=== PATIENT | male | born 1995 | race Caucasian/White ===

== ENCOUNTER 2020-04-01 15:21 | Emergency (ER) | payer BC, SELFPAY ==
[2020-04-01] VITALS (11 sets, daily range): BP systolic 106–141; BP diastolic 62–79; PULSE 57–74; RESP 14–18; TEMP 37; O2SAT 96–98; BMI 23.5
--- NOTE | 2020-04-01 15:39 | ECG_ITS ---
Measurements Intervals [place] Rate: 64 P: 11 TN: 139 QRS: 80 QRSD: 93 T: 72 QT: 380 QTc: 394 SINUS RHYTHM EARLY REPOLARIZATION [ST ELEVATION WITH NORMALLY INFLECTED T WAVE] Compared to ECG 07/14/2018 23:03:54 Early repolarization now present Electronically Signed On 04-01-2020 19:29:16 CDT by Benita Leigh M.D. [email or web address]
--- NOTE | 2020-04-01 15:39 | CT_ITS ---
WS: [id number] CT HEAD NONCONTRAST HISTORY: AMS/LOC TECHNIQUE: Contiguous axial imaging performed through the brain in 2.5 mm imaging. Bone and soft tiss ue windows. Sagittal and coronal reformats reviewed. All CT scans at [facility] use at ast one of these dose optimization techniques: automated exposure control; mA and/or kV adjustment pe r patient size (includes targeted exams where dose is matched to clinical indication); or iterative r econstruction. DLP: 751.84 mGy.cm COMPARISON: None available. No acute intracranial hemorrhage, midline shift or mass effect. No atrophy or prior infarcts or herniation. Ventricles: Normal size with no hydrocephalus. Paranasal sinuses: As visualized are clear. Mastoid air cells: Well pneumatized. Calvarium and scalp: Skull is intact with no soft tissue edema or swelling. CT/CT head wo con* [id number] IMPRESSION: Negative head CT.
--- NOTE | 2020-04-01 15:40 | XR_ITS ---
WS: [id number] PORTABLE CHEST HISTORY: dyspnea/cough COMPARISON: 07/14/2018 Lungs are clear and well expanded. No pleural effusion or pneumothorax. Cardiac size: Normal. Mediastinum/Aorta: Normal mediastinum. No osseous abnormality seen. XR/XR chest 1V portable [id number] IMPRESSION: Unremarkable portable chest.
[2020-04-01 15:52] LABS: Basophils # 0.1 10^3/uL (0.0-0.1); Basophils % 0.7 %; Eosinophils # 0.1 10^3/uL (0.0-0.8); Eosinophils % 0.7 %; Hematocrit 45.4 % (42.0-52.0); Hemoglobin 15.3 g/dL (11.7-16.6); Lymphocytes # 1.7 10^3/uL (0.8-4.8); Lymphocytes % 24.5 %; Mean Corpuscular HGB Conc 33.7 g/dL (30.0-36.0); Mean Corpuscular Hemoglobin 29.6 pg (28.0-34.0); Mean Corpuscular Volume 87.8 fL (80-94); Mean Platelet Volume 10.5 fL (7.4-10.4); Monocytes # 0.5 10^3/uL (0.2-0.9); Monocytes % 7.8 %; Neutrophils # 4.6 10^3/uL (1.8-7.7); Nucleated Red Blood Cells % 0 %; Platelet Count 204 10^3/cmm (130-400); Red Blood Count 5.17 10^6/uL (4.1-5.3); White Blood Count 6.9 10^3/uL (4.0-10.0)
[2020-04-01 15:58] LABS: Ketone (Acetest) Serum Negative (Negative)
--- NOTE | 2020-04-01 15:58 | XRR_ITS ---
PROCEDURE INFORMATION: Exam: XR Cervical Spine, 2 or 3 Views Exam date and time: 04/01/2020 4:26 PM Age: 24 years old Clinical indication: Neck pain; Patient HX: Found passed out in bathroom floor TECHNIQUE: Imaging protocol: XR of the cervical spine, 2 or 3 views. COMPARISON: No relevant prior studies available. FINDINGS: Vertebrae: Normal. No acute fracture. There is reversal of cervical lordosis which may reflect positional factors Soft tissues: Unremarkable. XR/XR cervical spine 3V* [id number] IMPRESSION: No acute bony abnormality.
[2020-04-01 16:33] LABS: Lactate (Lactic Acid level) 1.2 mmol/L (0.5-2.2)
--- NOTE | 2020-04-01 16:41 | ED_ITS ---
HPI - Altered Mental Status General: Chief Complaint: Altered Mental Status Stated Complaint: AMS Time Seen by Provider: 04/01/20 15:26 History of Present Illness: HPI narrative: 24 yo male had a syncopal episode he had been taking a shower got lightheaded and dizzy and passed out comes into now complaining of little bit of headache and back pain he vomited times once. He had some shortness of breath a little chest heaviness as well. He denies loss of bowel or bladder control did not bite his tongue this was an unwitnessed fall. He is not had any recent illnesses. Denies any other symptoms no GI or symptoms not been in contact with anyone and COVID no fevers recently denies any hematemesis coffee-ground emesis. MD complaint: other (Syncopal episode) Onset (ago): minute(s) Timing confirmed by: other (Unwitnessed) Severity: moderate Associated symptoms: Reports no associated symptoms Review of Systems Const: Denies: fever(s), chills, body aches, change in appetite, fatigue or malaise ENMT: Denies: throat pain, ear or mastoid pain, nasal discharge or nasal congestion Card: Denies: chest pain, edema, dyspnea on exertion or orthopnea Resp: Denies: dyspnea, productive cough or non-productive cough GI: Denies: abdominal pain, nausea, vomiting, hematemesis, coffee ground emesis, diarrhea, constipation, bloating, hematochezia or melena : Denies: flank pain, dysuria, urinary frequency or urinary urgency Skin/Breast: Denies: rash or pruritus PFSH ED PFSH: Social History Smoking and tobacco status: former smoker Physical Exam Const: COMMON NORMALS: no acute distress GENERAL APPEARANCE: cooperative and comfortable ORIENTATION/CONSCIOUSNESS: Yes awake, Yes oriented to person, Yes oriented to place and Yes oriented to time HENMT: COMMON NORMALS: normocephalic, atraumatic, hearing grossly normal bilaterally, external ears normal, EAC's normal, TM's normal bilaterally, Normal nasal mucous membranes and turbinates present, moist oral mucous membranes and oropharynx normal HEAD & SCALP: normocephalic and atraumatic NOSE: Normal nasal mucous membranes and turbinates present EXTERNAL EAR: Yes external ears normal EXTERNAL AUDITORY CANAL: EAC's normal TYMPANIC MEMBRANE: TM's nor mal bilaterally Eye: COMMON NORMALS: Equal, round and reactive pupils present, EOMs intact bilaterally, conjunctivae normal and no scleral icterus CONJUNCTIVA: Yes conjunctivae normal PUPIL: Yes Equal, round and reactive pupils present Neck/C-Spine: COMMON NORMALS: full ROM, no lymphadenopathy, supple and no JVD Lymph: LYMPHATIC: no lymphadenopathy noted and no lymphedema noted Resp: COMMON NORMALS: normal respiratory effort, No retractions, No use of accessory muscles and clear to auscultation bilaterally AUSCULTATION: clear to auscultation bilaterally Cardio: COMMON NORMALS: no JVD, regular rate, regular rhythm and No murmurs present (Cardio) RATE: regular rate RHYTHM: regular rhythm GI: COMMON NORMALS: Soft to palpation and No hepatosplenomegaly present AUSCULTATION: Yes normoactive bowel sounds PALPATION: Yes Soft to palpation, No Tenderness to palpation present (GI), No Guarding due to palpation present (GI) and Yes No hepatosplenomegaly present Extremity: COMMON NORMALS: normal to inspection, capillary refill normal, no clubbing, cyanosis or edema, no calf tenderness and no pedal edema Neuro: SENSORIUM/ORIENTATION: Yes oriented to person, Yes oriented to place and Yes oriented to time Skin: COMMON NORMALS: no rashes or lesions noted GENERAL SKIN EXAM: no rashes or lesions noted Course Vital Signs: Vital signs: Vital Signs Temperature 98.6 F 04/01/20 15:22 Pulse Rate 69 04/01/20 19:39 Respiratory Rate 18 04/01/20 19:39 Blood Pressure 106/65 04/01/20 19:39 Pulse Oximetry 98 04/01/20 19:39 MDM - Altered Mental Status MDM Narrative: Medical decision making narrative: Reviewed the findings with the patient is feeling much her suspect that a vasovagal episode while in the shower will go ahead and discharge him home push fluids discussed the etiology of the episode follow-up as needed Lab Data: Labs: Lab Results 04/01/20 04/01/20 04/01/20 Range/Units 15:08 15:08 15:08 WBC 6.9 (4.0-10.0) 10^3/ uL RBC 5.17 (4.1-5.3) 10^6/u L Hgb 15.3 (11.7-16.6) g/dL Hct 45.4 (42.0-52.0) % MCV 87.8 (80-94) fL MCH 29.6 (28.0-34.0) pg MCHC 33.7 (30.0-36.0) g/dL RDW 12.0 L (12.1-15.1) % Plt Count 204 (130-400) 10^3/c mm MPV 10.5 H (7.4-10.4) fL Neut % (Auto) 66.0 % Lymph % (Auto) 24.5 % Josephine % (Auto) 7.8 % Eos % (Auto) 0.7 % Baso % (Auto) 0.7 % Neut # (Auto) 4.6 (1.8-7.7) 10^3/u L Lymph # (Auto) 1.7 (0.8-4.8) 10^3/u L Josephine # (Auto) 0.5 (0.2-0.9) 10^3/u L Eos # (Auto) 0.1 (0.0-0.8) 10^3/u L Baso # (Auto) 0.1 (0.0-0.1) 10^3/u L Nucleated RBC % (a uto) 0 % Nucleated RBCs # 0.0 /100WBC Sodium 142 (136-145) mmol/L Potassium 4.2 (3.5-5.1) mmol/L Chloride 102 (98-107) mmol/L Carbon Dioxide 27 (22-29) mmol/L Anion Gap 17.2 (5-19) BUN 12 (6-20) mg/dL Creatinine 1.1 (0.7-1.2) mg/dL GFR Calculation 83.7 L (90-130) mL/min Glucose 69 (65-115) mg/dL Calculated Osmolal ity 288 (285-295) mOsm/k g Lactate (0.5-2.2) mmol/L Calcium 10.0 (8.5-10.5) mg/dL Total Bilirubin 0.7 (0.15-1.2) mg/dL AST 18 (0-40) U/L ALT 15 (0-41) U/L Alkaline Phosphata se 66 (40-130) IU/L Total Protein 7.8 (6.6-8.7) g/dL Albumin 5.4 H (3.5-5.2) g/dL Globulin 2.4 (1.3-4.6) g/dL Lipase 35 (13-60) U/L TSH 1.35 (0.27-4.20) uIU/ mL Urine Color (Yellow) Urine Appearance (CLEAR) Urine pH (5-7) Ur Specific Gravit y (1.005-1.030) Urine Protein (Negative) Urine Glucose (UA) (Normal) Urine Ketones (Negative) Urine Blood (Negative) Urine Nitrate (Negative) Urine Bilirubin (NEGATIVE) Urine Urobilinogen (Negative) mg/dL Ur Leukocyte Fidelia ase (Negative) Salicylates < 0.3 L (3-10) mg/dL Urine Opiates Scre en (Negative) ng/mL Acetaminophen < 5.0 L (10-30) ug/mL Ur Barbiturates Sc reen (Negative) ng/mL Ur Phencyclidine S crn (Negative) ng/mL Ur Amphetamines Sc reen (Negative) ng/mL U Benzodiazepines Scrn (Negative) ng/mL Urine Cocaine Scre en (Negative) ng/mL U Marijuana (THC) Screen (Negative) ng/mL Ethyl Alcohol < 10 (0-10) mg/dL Serum Ketones Negative (Negative) 04/01/20 04/01/20 04/01/20 Range/Units 16:10 18:00 18:00 WBC (4.0-10.0) 10^3/ uL RBC (4.1-5.3) 10^6/u L Hgb (11.7-16.6) g/dL Hct (42.0-52.0) % MCV (80-94) fL MCH (28.0-34.0) pg MCHC (30.0-36.0) g/dL RDW (12.1-15.1) % Plt Count (130-400) 10^3/c mm MPV (7.4-10.4) fL Neut % (Auto) % Lymph % (Auto) % Josephine % (Auto) % Eos % (Auto) % Baso % (Auto) % Neut # (Auto) (1.8-7.7) 10^3/u L Lymph # (Auto) (0.8-4.8) 10^3/u L Josephine # (Auto) (0.2-0.9) 10^3/u L Eos # (Auto) (0.0-0.8) 10^3/u L Baso # (Auto) (0.0-0.1) 10^3/u L Nucleated RBC % (a uto) % Nucleated RBCs # /100WBC Sodium (136-145) mmol/L Potassium (3.5-5.1) mmol/L Chloride (98-107) mmol/L Carbon Dioxide (22-29) mmol/L Anion Gap (5-19) BUN (6-20) mg/dL Creatinine (0.7-1.2) mg/dL GFR Calculation (90-130) mL/min Glucose (65-115) mg/dL Calculated Osmolal ity (285-295) mOsm/k g Lactate 1.2 (0.5-2.2) mmol/L Calcium (8.5-10.5) mg/dL Total Bilirubin (0.15-1.2) mg/dL AST (0-40) U/L ALT (0-41) U/L Alkaline Phosphata se (40-130) IU/L Total Protein (6.6-8.7) g/dL Albumin (3.5-5.2) g/dL Globulin (1.3-4.6) g/dL Lipase (13-60) U/L TSH (0.27-4.20) uIU/ mL Urine Color Yellow (Yellow) Urine Appearance Sl cloudy A (CLEAR) Urine pH 8 H (5-7) Ur Specific Gravit y 1.015 (1.005-1.030) Urine Protein Neg (Negative) Urine Glucose (UA) Norm (Normal) Urine Ketones Negative (Negative) Urine Blood Neg (Negative) Urine Nitrate Negative (Negative) Urine Bilirubin Neg (NEGATIVE) Urine Urobilinogen Neg (Negative) mg/dL Ur Leukocyte Fidelia ase Negative (Negative) Salicylates (3-10) mg/dL Urine Opiates Scre en Negative (Negative) ng/mL Acetaminophen (10-30) ug/mL Ur Barbiturates Sc reen Negative (Negative) ng/mL Ur Phencyclidine S crn Negative (Negative) ng/mL Ur Amphetamines Sc reen Negative (Negative) ng/mL U Benzodiazepines Scrn Negative (Negative) ng/mL Urine Cocaine Scre en Negative (Negative) ng/mL U Marijuana (THC) Screen Negative (Negative) ng/mL Ethyl Alcohol (0-10) mg/dL Serum Ketones (Negative) Discharge Plan Discharge Patient Disposition: Home, Self-Care Clinical Impression: Syncope, vasovagal Condition: Stable Prescriptions: No Action escitalopram oxalate 20 mg tablet 20 mg PO DAILY RF: 0 Discharge Diet: Advance as tolerated Discharge Activity: Increase activity as tolerated Discharge Date/Time: 04/01/20 19:41 Coding Level of Care Code ED Metal Temperer for Kadeng Fwd Exam Comprehensive
[2020-04-01 17:15] LABS: Acetaminophen < 5.0 ug/mL (10-30); Alanine Aminotransferase 15 U/L (0-41); Albumin Level 5.4 g/dL (3.5-5.2); Alkaline Phosphatase 66 IU/L (40-130); Anion Gap 17.2 (5-19); Aspartate Amino Transferase 18 U/L (0-40); Blood Urea Nitrogen 12 mg/dL (6-20); Carbon Dioxide 27 mmol/L (22-29); Chloride 102 mmol/L (98-107); Globulin 2.4 g/dL (1.3-4.6); Glomerular Filtration Rate 83.7 mL/min (90-130); Glucose 69 mg/dL (65-115); Lipase 35 U/L (13-60); Osmolality Calculated 288 mOsm/kg (285-295); Potassium 4.2 mmol/L (3.5-5.1); Salicylate < 0.3 mg/dL (3-10); Sodium 142 mmol/L (136-145); Thyroid Stimulating Hormone 1.35 uIU/mL (0.27-4.20); Total Bilirubin 0.7 mg/dL (0.15-1.2); Total Protein 7.8 g/dL (6.6-8.7)
[2020-04-01 17:28] LABS: Alcohol Level < 10 mg/dL (0-10)
[2020-04-01] MEDS: sodium chloride 0.9% 1,000 ML 999 ML IV (18:00)
[2020-04-01 18:20] LABS: Amphetamines Screen Urine Negative (Negative); Barbiturates Screen Urine Negative (Negative); Benzodiazepines Screen Urine Negative (Negative); Cocaine Screen Urine Negative (Negative); Opiate Screen Urine Negative (Negative); PCP Screen Urine Negative (Negative); THC Screen Urine Negative (Negative)
[2020-04-01 18:45] LABS: Add Urine Microscopic? NO
[2020-04-01 18:51] LABS: Urine Color Yellow (Yellow)
[2020-04-01 18:52] LABS: Bilirubin Urine Neg (NEGATIVE); Blood Urine Neg (Negative); Glucose Urine UA Norm (Normal); Ketones Urine Negative (Negative); Leukocyte Esterase Urine Negative (Negative); Nitrate Urine Negative (Negative); Protein Urine Neg (Negative); Specific Gravity, Urine 1.015 (1.005-1.030); Urobilinogen Urine Neg (Negative); pH Urine 8 (5-7)
--- NOTE | 2020-04-01 18:58 | PC.NURSE ---
report received from RAMIRO Crow and care transferred to RAMIRO Holman
== END 2020-04-01 19:41 | disposition home or self-care (01) ==
PROVIDERS: Emergency Provider Family Medicine
DX: R55 Syncope and collapse (principal); Z87.891 Personal history of nicotine dependence
CPT/HCPCS: 12345; 36415; 70450; 71045; 72040; 80053; 80306; 80307; 81003; 82009; 83605; 83690; 84443; 85025; 93005; 96360; 99283; 99284; A9270; J7030

== ENCOUNTER → 2020-05-09 09:51 | Outpatient (BNVA) | payer BC, SELFPAY | PROVIDERS: Visit Provider Specialist | DX: R55 Syncope and collapse (principal) | CPT/HCPCS: 95816 ==

== ENCOUNTER 2021-01-17 15:05 | Outpatient (CLI) | payer BC, SELFPAY ==
--- NOTE | 2021-01-17 15:17 | US_ITS ---
WS: [id number] TESTICULAR ULTRASOUND HISTORY: TESTICULAR PAIN RIGHT COMPARISON: None available. TECHNIQUE: Real-time and color Doppler imaging or utilized to perform a testicular ultrasound. Right testicle: 4.8 cm x 3.0 cm x 2.5 cm. Normal size and echogenicity. No mass or torsion. Normal color Doppler is present throughout. Systolic and diastolic velocities are both present. No significant hydrocele. Right epididymis: Normal epididymis with no increased vascularity. Left testicle: 4.5 cm x 2.7 cm x 2.4 cm. Normal size and echogenicity. No mass or torsion. Normal color Doppler is present throughout. Systolic and diastolic velocities are both present. No significant hydrocele. Left epididymis: Normal epididymis with no increased vascularity. Small LEFT epididymal head cyst or spermatocele. Benign appearing inguinal lymph nodes. US/US scrotum [id number] IMPRESSION: 1. No testicular mass or torsion. 2. Small LEFT epididymal head cyst or spermatocele.
== END 2021-01-17 15:06 | disposition home or self-care (01) ==
LOC: RAD 15:13
PROVIDERS: Visit Provider Nurse Practitioner Family
DX: N50.811 Right testicular pain (principal)
CPT/HCPCS: 76870

== ENCOUNTER 2021-02-08 13:15 | Emergency (ER) | payer BC, SELFPAY ==
[2021-02-08 13:18] VITALS: PULSE 79; RESP 17; TEMP 36.8; O2SAT 97; BMI 22.9
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
== END 2021-02-08 13:40 | disposition home or self-care (01) ==
PROVIDERS: Emergency Provider Nurse Practitioner Family; PCP Nurse Practitioner Family
DX: N50.811 Right testicular pain (principal); Z87.891 Personal history of nicotine dependence
CPT/HCPCS: 99282

== ENCOUNTER 2021-03-03 08:17 | Outpatient (CLI) | payer BC, SELFPAY ==
[2021-03-03] MEDS: iohexol 300 mg/mL 100 mL Btl IV (08:43)
--- NOTE | 2021-03-03 09:00 | CT_ITS ---
WS: [id number] CT ABDOMEN AND PELVIS WITH AND WITHOUT CONTRAST HISTORY: GROSS HEMATURIA TECHNIQUE: Unenhanced 5 mm axial imaging first performed through the abdomen. Post contrast imaging t hrough the abdomen and pelvis. Oral contrast has been provided. Sagittal and coronal reformats are s ubmitted. All CT scans at [facility] use at least one of these dose optimization techniqu es: automated exposure control; mA and/or kV adjustment per patient size (includes targeted exams whe re dose is matched to clinical indication); or iterative reconstruction. CONTRAST: Omnipaque 300; 95 mL IV. DLP: 1715.79 mGy.cm COMPARISON: 02/25/2016 Dependent changes at the lung bases. No pneumonia. Heart size is normal. No hiatal hernia. Liver, spleen, pancreas, adrenal glands and aorta are negative. No bile duct dilatation. Gallbladder is normally distended. There are small foci soft tissue along the dependent portion of the gallbladde r. Hyperplastic polyps have been described on prior studies. No adenopathy or ascites. RIGHT kidney: Normal size kidney with no stone or obstruction. No uroepithelial filling defect. LEFT kidney: Normal size kidney. No stone or obstruction. No uroepithelial filling defect. No enhanci ng mass. Normal ureter. Gastrointestinal tract is normal. No obstruction. No evidence for appendicitis. There are a few small mesenteric and RIGHT lower quadrant lymph nodes which are under a centimeter. Nondistended urinary bladder. On the delayed images there is partial filling of the urinary bladder w ith contrast. No free fluid or adenopathy in the pelvis. No osteoblastic or osteolytic bone disease. CT/CT abdomen pelvis wo/w [id number] IMPRESSION: 1. No renal calcifications or mass or obstruction. 2. Normal appendix. 3. Negative bladder. 4. Small filling defects in the gallbladder consistent with polyps which were also described on 09/13/2018.
== END 2021-03-03 08:18 | disposition home or self-care (01) ==
PROVIDERS: PCP Nurse Practitioner Family; Visit Provider Urology
DX: R31.0 Gross hematuria (principal)
CPT/HCPCS: 74178; 81003

== ENCOUNTER → 2021-06-10 16:01 | Outpatient (BNVA) | payer BC, SELFPAY | PROVIDERS: PCP Nurse Practitioner Family; Visit Provider Nurse Practitioner Family | DX: M54.9 Dorsalgia, unspecified (principal); R06.89 Other abnormalities of breathing | CPT/HCPCS: 71046; 80053; 81000; 85025 ==

== ENCOUNTER → 2021-11-20 12:13 | Day surgery (SDC) | payer BC, SELFPAY ==
[2021-11-20 12:49] VITALS: BP 134/73; PULSE 72; RESP 18; TEMP 36; O2SAT 100
[2021-11-20] MEDS: lidocaine 2% Urojet 20 mL TOPICAL (12:50)
--- NOTE | 2021-11-20 13:00 | PC.NURSE ---
Addendum entered by Kailey Paris RN 11/20/21 13:48: Approximately 150 mL clear, light yellow urine emptied. Original Note: Pt to GI lab for straight cath. Urine to be sent for UA and culture. Pt tolerated well.
[2021-11-20 13:12] LABS: Add Urine Microscopic? NO; Charge for UA Resulting for Rev
[2021-11-20 13:31] LABS: Bilirubin Urine Neg (Negative); Blood Urine Neg (Negative); Glucose Urine UA Norm (Normal); Ketones Urine Negative (Negative); Leukocyte Esterase Urine Negative (Negative); Nitrate Urine Negative (Negative); Protein Urine Neg (Negative); Urine Appearance Clear (CLEAR); Urine Color Yellow (Yellow); Urobilinogen Urine Neg (Negative); pH Urine 7 (5-7)
== END ==
PROVIDERS: PCP Nurse Practitioner Family; Visit Provider Nurse Practitioner Family
DX: R33.9 Retention of urine, unspecified (principal)
CPT/HCPCS: 51701; 81003; 87086

== ENCOUNTER → 2021-12-19 10:46 | Outpatient (BNVA) | payer BC, SELFPAY | PROVIDERS: PCP Nurse Practitioner Family; Visit Provider Urology | DX: R31.0 Gross hematuria (principal); N50.811 Right testicular pain | CPT/HCPCS: 81003 ==

== ENCOUNTER → 2022-05-07 11:54 | Outpatient (BNVA) | payer SELFPAY | PROVIDERS: PCP Nurse Practitioner Family; Visit Provider Nurse Practitioner Family | DX: J02.9 Acute pharyngitis, unspecified (principal); Z20.822 Contact with and (suspected) exposure to COVID-19 | CPT/HCPCS: 87071; 87635; 87880 ==

== ENCOUNTER → 2023-12-29 09:32 | Outpatient (BNVA) | payer BC, SELFPAY | PROVIDERS: PCP Nurse Practitioner Family; Visit Provider Nurse Practitioner Family | DX: M79.641 Pain in right hand (principal); S69.91XA Unspecified injury of right wrist, hand and finger(s), initial encounter; X58.XXXA Exposure to other specified factors, initial encounter | CPT/HCPCS: 73130 ==

== ENCOUNTER 2024-02-26 18:12 | Emergency (ER) | payer SELFPAY ==
[2024-02-26 18:18] VITALS: BP 117/75; PULSE 65; RESP 16; TEMP 36.7; O2SAT 99; BMI 22.2
--- NOTE | 2024-02-26 18:23 | XRR_ITS ---
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 ; Additional info: L shoulder pain TECHNIQUE: Imaging protocol: Radiologic exam of the left shoulder. Views: 2 or more views. COMPARISON: CR XR chest 2V* [id number] 06/10/2021 4:03 PM FINDINGS: Bones/joints: No acute fracture or dislocation. Soft tissues: Unremarkable. XR/XR shoulder LT min 2V* [id number] IMPRESSION: No acute fracture or dislocation.
--- NOTE | 2024-02-26 18:48 | W.ED.EXTPRO ---
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 Since then patient has had difficulty with moving the shoulder and with pain and discomfort. 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 Family History Grandfather Lung cancer Family/Other Breast cancer Social History Smoking and tobacco/nicotine status: never used tobacco/nicotine Alcohol intake: never Marital status: Single Current occupational status: employed Physical Exam Const: COMMON NORMALS: alert HENMT: COMMON NORMALS: normocephalic HEAD & SCALP: normocephalic Neck/C-Spine: COMMON NORMALS: full ROM Resp: COMMON NORMALS: normal respiratory effort and clear to auscultation bilaterally AUSCULTATION: clear to auscultation bilaterally Cardio: COMMON NORMALS: regular rate RATE: regular rate Back/Pelvis: COMMON NORMALS: thoracic and lumbar spine normal to inspection Extremity: LEFT UPPER EXTREMITY: Yes shoulder joint (anterior posterior tenderness, decreased rom d/t pain) Left shoulder joint: Yes inspection, Yes palpation, Yes ROM and Yes neurovascular exam Neuro: SENSORIUM/ORIENTATION: Yes alert Skin: COMMON NORMALS: turgor normal GENERAL SKIN EXAM: turgor normal Course Vital Signs: Vital signs: Vital Signs Temperature 98.1 F 02/26/24 18:18 Pulse Rate 65 02/26/24 18:18 Respiratory Rate 16 02/26/24 18:18 Blood Pressure 117/75 02/26/24 18:18 Pulse Oximetry 99 02/26/24 18:18 Oxygen Delivery Me thod Room Air 02/26/24 18:18 MDM - Extremity (Nontraumatic) Medical Decision Making 28-year-old male patient comes in today for complaints of injury to the left shoulder. On exam patient has normal passive range of motion but decreased active range of motion due to pain. Distal pulses and sensations intact. Vital signs are normal. Differential diagnosis includes rotator cuff strain, AC joint sprain, doubt shoulder dislocation. Reviewed exam with patient with recommendations for treatment and follow-up. Patient reported understanding and agreed to plan. XR interpretation done by ED provider, pending radiology final review Discharge Plan Discharge Patient Disposition: Home Clinical Impression: Rotator cuff sprain Qualifiers: Encounter type: initial encounter Laterality: left Qualified Code(s): S43.422A - Sprain of left rotator cuff capsule, initial encounter Condition: Stable Prescriptions: New ketorolac 10 mg tablet 10 mg PO Q6H PRN (Reason: Pain) Qty: 15 0RF Rx Instructions: maximum total duration of 5 days from all oral, intranasal, or parenteral formulations No Action azithromycin 250 mg tablet See Rx Instructions PO .COMPLEX Qty: 6 0RF Rx Instructions: For 250 mg dose pack: take 500 mg today (day 1), then 250 mg for 4 days (days 2-5) PO Discharge Orders: Discharge ED (Routine); Ordered 02/26/24 Ordered By: Carter Juares Referrals: Flo Ortez NP [Primary Care Provider] - Discharge Diet: Usual diet Discharge Activity: Increase activity as tolerated Patient Instructions: Rotator Cuff Injury (ED), Rotator Cuff Injury Exercises (DC) Activity Restrictions/Additional Instructions: Activity as tolerated. Use acetaminophen along with ketorolac for pain. Use ice packs for further pain relief. Do not use naproxen or ibuprofen containing products with the ketorolac. Follow-up with primary care in 7 days for recheck. Return to ER for new concerns. Coding Level of Care Code ED Patch Worker for Matt Garcia
[2024-02-26] MEDS: ketorolac 10 mg Tablet PO (19:28)
[2024-02-26 19:39] VITALS: BP 117/75; PULSE 64; RESP 16; TEMP 36.7; O2SAT 100
== END 2024-02-26 19:40 | disposition home or self-care (01) ==
PROVIDERS: Emergency Provider Nurse Practitioner Family; PCP Nurse Practitioner Family
DX: S43.422A Sprain of left rotator cuff capsule, initial encounter (principal); X50.0XXA Overexertion from strenuous movement or load, initial encounter; Y99.0 Civilian activity done for income or pay
CPT/HCPCS: 73030; 99283